=== PATIENT | male | born 1995 | race Caucasian/White ===

== ENCOUNTER 2018-10-14 11:24 | Emergency (ER) | payer BC ==
[2018-10-14] MEDS: DIPHTH/TET/ACEL PERTUSS (ADULT) 0.5 ML VIAL IM* (12:28)
== END 2018-10-14 13:50 | disposition home or self-care (01) ==
LOC: FTE 11:24
DX: S92.415B Nondisplaced fracture of proximal phalanx of left great toe, initial encounter for open fracture (principal); W20.8XXA Other cause of strike by thrown, projected or falling object, initial encounter; Y92.039 Unspecified place in apartment as the place of occurrence of the external cause; Z23 Encounter for immunization
CPT/HCPCS: 73660; 90471; 90715; 99283-25

== ENCOUNTER 2019-03-08 08:03 | Emergency (ER) | payer BC | END 2019-03-08 08:51 | disposition home or self-care (01) | LOC: FTE 08:03 | DX: R07.89 Other chest pain (principal); F17.210 Nicotine dependence, cigarettes, uncomplicated | CPT/HCPCS: 71045; 93005; 99284-25 ==